=== PATIENT | male | born 1995 | race Caucasian/White ===

== ENCOUNTER 2023-12-01 22:28 | Emergency (ER) | payer SELFPAY ==
[2023-12-01 22:29] VITALS: BP 155/94; PULSE 113; RESP 18; TEMP 36.4; O2SAT 98; BMI 34.0
--- NOTE | 2023-12-01 22:40 | RAD_ITS ---
INDICATION: Injury/Pain -- Ring finger EXAMINATION/TECHNIQUE: X-RAY - LEFT HAND XR Fingers 3 VIEWS COMPARISON: FINDINGS: SOFT TISSUES: There is soft tissue swelling of the fourth finger. No radiopaque foreign body. BONES/JOINTS: No acute fracture or subluxation.. Normal alignment. Preservation of the joint space.. No sclerotic or destructive changes observed. RAD/Finger(s) Min 2 Views IMPRESSION: No acute bony injury. Electronically Signed: Sav Murray DO at 23:02 EDT ,
[2023-12-01] MEDS: Diphth,Pertuss(Acell),Tet Vac 0.5 ML Vial IM (22:52)
--- NOTE | 2023-12-01 23:06 | EX.ED.UPPERE ---
HPI History of Present Illness Chief Complaint: Upper Extremity Injury Detail of Chief Complaint: Puncture wound volar surface left ring finger Informant: patient Occured/Mechanism Comment: Puncture wound with staple Onset/Context/Timing Onset: Today and Hours Context: Sudden Onset Timing: Intermittent Location: Complains of discomfort PIP crease volar surface left ring finger Current Severity: 08/01 Maximum Severity: 10 Worsened by: Palpation over puncture sites Relieved by: Rest Associated Symptoms Associated Symptoms: Positive for Parasthesia; Negative for Weakness or Loss of Funtion Narrative Narrative: Puncture wound was stapled at approximately 1500 earlier today. Patient presents because of tingling his finger and pain. He denies fever, chills night sweats. There is no history medic fever review of records. He has no antibiotic allergies. Tetanus is unknown. He has no other complaints. Tetanus Immunization: Unknown PFSH [facility] Medical History no medical history no medical history Home Medications diphenhydramine HCl 25 mg capsule (Banophen) 50 mg (2 x 25 mg) PO TID PRN PRN Itching ##20 01/04/14 [Rx Last Taken Unknown] doxycycline monohydrate 100 mg capsule 100 mg PO BID ##20 10/29/16 [Rx Last Taken Unknown] hydrocodone-acetaminophen 5-325mg 5mg-325mg 1 - 2 tab PO Q4H PRN PRN Pain ##20 10/29/16 [Rx Last Taken Unknown] cephalexin 500 mg capsule 500 mg PO Q6 #12 CAPSULES 12/01/23 [Rx Last Taken Unknown] Allergy/AdvReac Type Severity Reaction Status Date / Time No Known Allergies Allergy Verified 12/01/23 22:28 Social History Smoking Status: Current every day smoker tobacco type: e-cigarettes ROS ROS ED Integumentary Reports other Details: Puncture wounds from staple volar surface of the left ring finger. Neurologic Neurologic: Reports paresthesias; Denies weakness Hematologic/Lymphatic Hematologic/Lymphatic: Denies easy bleeding or easy bruising EXAM Physical Exam Const Vital Signs: 12/01/23 22:29 Temperature 97.5 F L Temperature Source Temporal Pulse Rate 113 H Respiratory Rate 18 Blood Pressure 155/94 H Blood Pressure Mean 114 Pulse Ox 98 Oxygen Delivery Method Room Air Positive well nourished and well developed General Appearance ED: well developed and NAD HEENT normocephalic and atraumatic Eyes PERRL and EOMs intact bilaterally Resp normal respiratory effort Cardio regular rate and regular rhythm Extremity Negative for normal to inspection Extremity Narrative: Puncture wound noted crease of the PIP joint and proximal of the DIP joint volar surface of left ring finger. There is no erythema, warmth, induration, lymphangitis. There is no pain ovation over the flexor tendon sheath. There is no swelling of the digit. There is no concern at this time for flexor tenosynovitis. 2 point discrimination is normal. Neuro oriented x3 and CN's II-XII intact bilaterally Sensorium / Orientation: alert Psych mental status grossly normal Skin Skin Narrative: Puncture wounds described under the extremity portion of the EMR MDM MDM MDM Narrative Medical decision making narrative: X-ray was obtained to evaluate for foreign body. 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 Tetanus was updated. Radiography Chest X-Ray - ED: Read by ED Physician (Three-view x-ray of the left index finger was independent reviewed interpreted by me at 2300 as negative for any foreign body. There is no abnormality of the middle or proximal phalanx. Furthermore there was no air noted in the PIP joint.) Diagnostic Testing: Clinical Impression(s) from Imaging Studies Finger X-Ray 12/01/23 22:40 IMPRESSION: No acute bony injury. Electronically Signed: Sav Murray DO at 23:02 EDT Reading Location ID and State: [address] [place] [address] Tel [phone], Service support , Discharge Plan Triage Chief Complaint: Upper Extremity Injury ED Provider: Jose Luis Cassidy Dx/Rx/DC Orders Clinical Impression: Puncture wound of finger of left hand Instructions: ED Puncture Wound (General) Prescriptions: New cephalexin [cephalexin] 500 mg capsule 500 mg PO Q6 Qty: 12 0RF No Action diphenhydramine HCl [Banophen] 25 MG capsule 50 mg PO TID PRN PRN (Reason: Itching) Qty: 20 0RF hydrocodone-acetaminophen 1 TABLET tablet 1 - 2 tab PO Q4H PRN PRN (Reason: Pain) Qty: 20 0RF doxycycline monohydrate 100 MG capsule 100 mg PO BID Qty: 20 0RF Primary Care Provider: Care Physician,No Primary Referrals: Willie Camacho MD [Med Staff - Active Staff] - 2 Days for wound check Care Physician,No Primary [Primary Care Provider] - Activity Restrictions/Additional Instructions: If you develop swelling of your finger, redness, drainage from the 2 puncture sites or red streak going towards your wrist return to the emergency department. If you have tenderness over the tendon return immediately. Disposition Disposition: Home, Self Care
[2023-12-01] MEDS: Cephalexin 250 MG Capsule 500 MG PO (23:37)
[2023-12-01 23:42] VITALS: BP 141/74; PULSE 71; RESP 16; TEMP 36.8; O2SAT 97
== END 2023-12-01 23:43 | disposition home or self-care (01) ==
PROVIDERS: Emergency Provider Emergency Medicine; Visit Provider Emergency Medicine
DX: S61.235A Puncture wound without foreign body of left ring finger without damage to nail, initial encounter (principal); F17.210 Nicotine dependence, cigarettes, uncomplicated; Z23 Encounter for immunization
CPT/HCPCS: 73140; 90715; 99282

== ENCOUNTER 2024-10-28 22:08 | Emergency (ER) | payer BC, SELFPAY ==
[2024-10-28 22:08] VITALS: BP 146/84; PULSE 95; RESP 16; TEMP 36.6; O2SAT 98; BMI 36.3
--- NOTE | 2024-10-28 22:32 | EX.ED.UPPERE ---
HPI History of Present Illness Chief Complaint: Upper Extremity Injury Detail of Chief Complaint: Swelling, pain and redness left hand Informant: patient Occured/Mechanism Comment: Patient awoke this morning with pain in his left hand and redness as well as swelling. Onset/Context/Timing Onset: Today Context: Sudden Onset Timing: Continuous Quality of Pain: - (Prickly burning sensation) Location: Left hand and digits Current Severity: Mild Maximum Severity: Moderate Worsened by: Touch Relieved by: Nothing Associated Symptoms Associated Symptoms: Positive for Loss of Funtion (Feels as if his skin is tight and has restricted motion of his digits); Negative for Parasthesia or Weakness Narrative Narrative: Patient is a 29-year-old [id number] male. He has no significant past medical history. He presents because of swelling, pain and redness to his left hand. He first noted it this morning. He states has gotten worse. He does not have any medical problems and is presently on no medication. He denies itching. He denies prior symptoms. 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 This is nothing new. He apparently does not wear gloves. The swelling and redness is only noted on the left side and the redness is limited to the palmar surface of his thumb, fingers and palm. He has not noted any blistering. He denies heat exposure. Prior similar symptoms: No Recent Illness/Hospitalization: No PFSH PFSH Medical History no medical history no medical history Home Medications ?Medication ?Instructions ?Recorded ?Last Taken ?Type diphenhydramine HCl 25 mg capsule 50 mg (2 x 25 mg) PO TID PRN PRN 01/04/14 Unknown Rx (Banophen) Itching ##20 doxycycline monohydrate 100 mg 100 mg PO BID ##20 10/29/16 Unknown Rx capsule hydrocodone-acetaminophen 5-325mg 1 - 2 tab PO Q4H PRN PRN Pain ##20 10/29/16 Unknown Rx 5mg-325mg cephalexin 500 mg capsule 500 mg PO Q6 #12 CAPSULES 12/01/23 Unknown Rx naproxen 500 mg tablet 500 mg PO BID #14 tabs 10/28/24 Unknown Rx Allergy/AdvReac Type Severity Reaction Status Date / Time No Known Allergies Allergy Verified 10/28/24 22:10 Family History no significant family his Surgical History no surgical history no surgical history Social History Smoking Status: Current every day smoker tobacco type: e-cigarettes ROS ROS ED Constitutional Constitutional ED: Denies chills, fever(s), subjective, sweats or weight loss Gastrointestinal Gastrointestinal: Denies nausea or vomiting Genitourinary Genitourinary ED: Denies dysuria, hematuria or urinary frequency Musculoskeletal Musculoskeletal: Denies myalgias Integumentary Reports rash; Denies abscess or Abrasions Neurologic Neurologic: Reports paresthesias LUE (Limited to hand and digits); Denies headache(s) or weakness Hematologic/Lymphatic Hematologic/Lymphatic: Denies easy bleeding or easy bruising EXAM Physical Exam Const Vital Signs: 10/28/24 22:08 Temperature 97.9 F Temperature Source Oral Pulse Rate 95 Respiratory Rate 16 Blood Pressure 146/84 H Blood Pressure Mean 104 Pulse Ox 98 Oxygen Delivery Method Room Air Positive well nourished and well developed Constitutional Narrative: Vitals are markable slightly elevated blood pressure. BMI is 36.3. General Appearance ED: well developed and NAD; Negative for cyanotic or diaphoretic HEENT Reports moist mucous membranes normocephalic and atraumatic Eyes PERRL and EOMs intact bilaterally Neck full ROM and supple Resp normal respiratory effort and clear to auscultation bilaterally Cardio regular rate, regular rhythm, S1 normal heart sound, S2 normal heart sound and no murmurs Extremity full ROM; Negative for normal to inspection Extremity Narrative: Median, radial and ulnar function intact on the left. Radial pulses palpable. Patient reports sensitivity to light touch of his digits. There is a blanching erythematous rash noted predominantly on the volar surface of his thumb, all of his fingers and areas of his palm. There is no lymphangitis. There is no epitrochlear or axillary lymphadenopathy. There is no blistering noted. Neuro oriented x3, CN's II-XII intact bilaterally, no focal motor deficits and no sensory deficits noted Sensorium / Orientation: alert Psych mental status grossly normal Skin Skin Narrative: Described under the extremity portion of the EMR MDM MDM MDM Narrative Medical decision making narrative: Patient with swelling of his left hand compared to right with a rash. He this could be due to chemical exposure, autoimmune disorder, doubt infectious etiology. Patient was medicated with ketorolac since he has no contraindication and he drove himself to the emergency department. Labs were obtained to assess white count differential. Inflammatory markers were obtained and comprehensive metabolic panel was obtained to assess renal function, electrolytes, glucose. History & Record Review Additional record(s) reviewed:: Prior ED visit (Patient was seen November of last year for puncture wound to finger of his left hand, October 2016 for STI and contact dermatitis December 2013.) and Prior labs Lab Data Attestation: I reviewed the patient's lab results. Lab results narrative: CBC is unremarkable. ESR is normal. C-reactive protein is elevated 8.1. Competence of metabolic panel is unremarkable. CO2 is slightly low at 19.2 with a normal anion gap. Treatment and Re-Evaluation Narrative: Patient was informed that because of his rash and pain is uncertain. The area involvement is has to be picked up at the bottom of thermos upside down. He denies contact with anything hot or cold. Will have patient signed consent for picture and will refer to od grinder operator Discharge Plan Triage Chief Complaint: Upper Extremity Injury ED Provider: Jose Luis Cassidy Dx/Rx/DC Orders Clinical Impression: Abdominal hyperesthesia, Erythematous rash Instructions: Nonspecific Skin Rash Prescriptions: New naproxen 500 mg tablet 500 mg PO BID Qty: 14 0RF No Action diphenhydramine HCl [Banophen] 25 MG capsule 50 mg PO TID PRN PRN (Reason: Itching) Qty: 20 0RF hydrocodone-acetaminophen 1 TABLET tablet 1 - 2 tab PO Q4H PRN PRN (Reason: Pain) Qty: 20 0RF doxycycline monohydrate 100 MG capsule 100 mg PO BID Qty: 20 0RF cephalexin [cephalexin] 500 mg capsule 500 mg PO Q6 Qty: 12 0RF Primary Care Provider: Care Physician,No Primary Referrals: Dr. Neo Day - Dermatology [Outside] - 1-2 Days if not improving Care Physician,No Primary [Primary Care Provider] - Activity Restrictions/Additional Instructions: 1. No exposure to anything hot or extremely cold. 2. Take naproxen for pain Print Language: Filipino Disposition Disposition: Home, Self Care
[2024-10-28 22:55] LABS: Erythrocyte Sedimentation Rate 11 mm/hr (0-20)
[2024-10-28 22:57] LABS: Absolute Lymphocyte Count 2.35 X10^3/uL (0.83-4.51); Absolute Neutrophil Count 3.3 X10^3/uL (2.0-7.7); Basophil# 0.08 X10^3/uL; Basophil% 1.2 % (0-1); Eosinophil# 0.47 X10^3/uL; Eosinophils% 6.9 % (0-5); Hematocrit 44.7 % (40-54); Lymphocyte # 2.35 X10^3/ul (0.83-4.51); Lymphocyte % 34.4 % (19-41); Mean Corp Hgb Conc 33.6 g/dL (32-36); Mean Corpuscular Hgb 28.7 pg (27.0-32.0); Mean Corpuscular Volume 85.6 fL (80-94); Mean Platelet Vol. 9.8 fl (6.2-12.0); Monocyte# 0.58 X10^3/uL; Monocyte% 8.5 % (0-10); NRBC Flagged by Analyzer 0 % (0-5); Neutrophil # 3.34 X10^3/uL (2.7-7.7); Neutrophil % 48.9 % (47-70); Platelet Count 399 K/mm3 (150-450); RBC Distribution Width CV 13.9 % (11.6-14.6); RBC Distribution Width SD 43.6 fl (35.1-43.9); Red Blood Count 5.22 M/mm3 (4.6-6.2); White Blood Count 6.8 K/mm3 (4.4-11.0)
[2024-10-28] MEDS: Ketorolac 15 MG/ML Vial IV (23:00)
[2024-10-28 23:03] LABS: ALB/GLOB Ratio 1.4 RATIO (0.9-2.4); AST(SGOT) 31 U/L (<=37); Alanine Aminotransfer ALT/SGPT 47 U/L (<=46); Albumin, Serum 4.4 g/dL (3.5-5.0); Alkaline Phosphatase 69 U/L (40-129); Anion Gap 14 (5-15); BUN 13 mg/dL (4-19); BUN/Creat Ratio 12.5 RATIO (10-20); Carbon Dioxide 19.3 mmol/L (21.0-32.0); Chloride 108 mmol/L (98-108); EST Glomerular Filtration Rate 104 (>60); Estimated Creatinine Clearance 149.54 ml/min (50-250); Globulin 3.2 g/dL (2.2-4.2); Glucose 110 mg/dL (70-99); Potassium 3.9 mmol/L (3.3-5.1); Protein, Total 7.6 g/dL (5.9-8.4); Sodium Level 141 mmol/L (133-145); Total Bilirubin 0.41 mg/dL (0.00-1.30)
[2024-10-28 23:35] VITALS: BP 135/74; PULSE 84; RESP 16; TEMP 36.6; O2SAT 98
== END 2024-10-28 23:45 | disposition home or self-care (01) ==
PROVIDERS: Emergency Provider Emergency Medicine; Visit Provider Emergency Medicine
DX: R20.3 Hyperesthesia (principal); R21 Rash and other nonspecific skin eruption; F17.290 Nicotine dependence, other tobacco product, uncomplicated
CPT/HCPCS: 80053; 85025; 85652; 86140; 96374; 99283; A4216

== ENCOUNTER 2025-05-26 19:36 | Emergency (ER) | payer MEDICAID, SELFPAY ==
[2025-05-26 19:37] VITALS: BP 147/90; PULSE 101; RESP 19; TEMP 36.6; O2SAT 98; BMI 32.6
[2025-05-26 20:02] LABS: Hematocrit 40.9 % (40-54); Hemoglobin 13.4 g/dL (13.0-16.5); Immature Granulocytes Count 0.020 X10^3/uL (0.0-0.0); Mean Corp Hgb Conc 32.8 g/dL (32-36); Mean Corpuscular Volume 87.2 fL (80-94); Mean Platelet Vol. 9.7 fl (6.2-12.0); NRBC Flagged by Analyzer 0 % (0-5); Platelet Count 366 K/mm3 (150-450); RBC Distribution Width CV 14.3 % (11.6-14.6); RBC Distribution Width SD 45.4 fl (35.1-43.9); Red Blood Count 4.69 M/mm3 (4.6-6.2); White Blood Count 9.9 K/mm3 (4.4-11.0)
[2025-05-26 20:35] LABS: AST(SGOT) 23 U/L (<=37); Alanine Aminotransfer ALT/SGPT 29 U/L (<=46); Albumin, Serum 4.5 g/dL (3.5-5.0); Alkaline Phosphatase 57 U/L (40-129); Anion Gap 10 (5-15); BUN 15 mg/dL (4-19); BUN/Creat Ratio 11.2 RATIO (10-20); Calcium,Total 9.3 mg/dL (7.6-11.0); Carbon Dioxide 26.1 mmol/L (21.0-32.0); Chloride 105 mmol/L (98-108); Estimated Creatinine Clearance 106.63 ml/min (50-250); Globulin 3.0 g/dL (2.2-4.2); Glucose 85 mg/dL (70-99); Lipase 18 U/L (13-75); Potassium 4.3 mmol/L (3.3-5.1)
--- NOTE | 2025-05-26 21:07 | CT_ITS ---
PROCEDURE: CT/Abdomen/Pelvis W IV Cont ONLY
[2025-05-26 21:41] VITALS: BP 126/75; PULSE 88; RESP 16; O2SAT 98
--- NOTE | 2025-05-26 21:48 | CM.ED ---
Social work Reason for referral: no PCP Referral source: case find SW entered patient's room, introducing self and role at [facility]. Patient welcomed SW visit and confirmed lacking a PCP. Patient was hesitant to do so, but accepted resources of [facility] Provider Directory and Zayda Cohen information. Patient denied further resources at this time. Nighat Rangel, VARNISH BLENDER, BILLIARD TABLE REPAIRER
[2025-05-26 23:03] VITALS: BP 129/72; PULSE 88; RESP 15; TEMP 36.6; O2SAT 98
[2025-05-26 23:34] VITALS: BP 129/72; PULSE 88; RESP 15; TEMP 36.6; O2SAT 98
--- NOTE | 2025-05-26 23:39 | EX.ED.DYSGE1 ---
HPI History of Present Illness Chief Complaint: Abd Pain Informant: patient Narrative Narrative: 29-year-old male presenting to the emergency room with chief complaint of rectal bleeding and abdominal trauma. Patient states that yesterday he had an 80 pound piece of an engine fall onto his abdomen. He states he was sore but it was more so this morning and throughout the day. He notes some burning in the upper mid abdomen as well as a sharp pain. He states that he is been feeling like perhaps has had an umbilical hernia for some time. That appears unchanged. Has not had any pain with urination or hematuria. Had a bowel movement at work tonight and noticed a large amount of blood with the stool. No reported vomiting. No fevers. PFSH PFSH Home Medications ?Medication ?Instructions ?Recorded ?Last Taken ?Type oxycodone-acetaminophen 5 mg-325 1 tab PO Q6H PRN pain 3 days #12 05/26/25 Unknown Rx mg tablet (Percocet) tabs Allergy/AdvReac Type Severity Reaction Status Date / Time No Known Allergies Allergy Verified 05/26/25 19:37 Surgical History H/O hand surgery H/O left knee surgery Social History Smoking Status: Current every day smoker tobacco type: e-cigarettes ROS ROS ED Constitutional Constitutional ED: Denies chills or weight loss Eyes Eyes: Denies change in vision or diplopia ENT ENT ED: Denies ear pain, rhinorrhea or sore throat Cardiovascular Cardiovascular: Denies chest pain, orthopnea, palpitations or racing heartbeat Respiratory/Chest Respiratory/Chest: Denies cough, dyspnea or orthopnea Gastrointestinal Gastrointestinal: Reports abdominal pain and other Details: Hematochezia ; Denies diarrhea, nausea or vomiting Genitourinary Genitourinary ED: Denies dysuria, hematuria or urinary frequency Musculoskeletal Musculoskeletal: Denies arthralgias or myalgias Integumentary Denies abscess or rash Neurologic Neurologic: Denies headache(s) or weakness Psychiatric Psychiatric: Denies anxiety, depression, suicidal ideation or suicidal thoughts Endocrine Endocrinology: Denies polydipsia, polyphagia or polyuria Allergic/Immunologic Allergic/Immunologic ED: Denies mouth swelling, tongue swelling or urticaria EXAM Physical Exam Const Vital Signs: 05/26/25 19:37 05/26/25 21:41 05/26/25 23:03 Temperature 97.8 F 97.8 F Temperature Source Oral Oral Pulse Rate 101 H 88 88 Respiratory Rate 19 H 16 15 Blood Pressure 147/90 H 126/75 H 129/72 H Blood Pressure Mean 109 92 91 Pulse Ox 98 98 98 Oxygen Delivery Method Room Air Room Air Room Air 05/26/25 23:34 Temperature 97.8 F Temperature Source Pulse Rate 88 Respiratory Rate 15 Blood Pressure 129/72 H Blood Pressure Mean 91 Pulse Ox 98 Oxygen Delivery Method Positive well nourished and well developed General Appearance ED: well developed and NAD HEENT Reports normocephalic, head/scalp atraumatic and moist mucous membranes Eyes PERRL and EOMs intact bilaterally Neck no lymphadenopathy, supple and no JVD Resp normal respiratory effort and clear to auscultation bilaterally Cardio regular rate, regular rhythm and no murmurs GI GI Narrative: There appears to be a small umbilical abdominal wall defect but no obvious hernia at this time. I do not see any abdominal bruising or abrasions. I do not appreciate any gross rectal blood or external hemorrhoids.There is no flank ecchymosis. Palpation: soft and tender epigastric Back/Spine no CVA tenderness and normal ROM Extremity normal to inspection General Extremety ED: Negative for edema General Extremity: Negative for edema Neuro oriented x3 and CN's II-XII intact bilaterally Sensorium / Orientation: alert Motor Exam: strength 5/5 throughout Psych mental status grossly normal Mood & Affect: Negative for depressed or tearful Skin no rashes or lesions noted and no wounds MDM MDM MDM Narrative Medical decision making narrative: Differential diagnosis includes but not limited to liver and spleen lacerations pancreatitis perforated viscus abdominal wall contusion bowel contusion anemia fracture Basic blood work was obtained was negative including his liver and lipase. Creatinine 1.33 hemoglobin 13.4 platelet count is 366. CT abdomen pelvis with IV contrast was obtained. This was read by radiology reviewed by myself. I do not see any obvious intra-abdominal trauma. I reviewed the case with on-call surgeon Dr. Berry. As the patient has been doing well we do not see any significant findings on his CT read I discharged him home with supportive care. He was advised this may be an internal hemorrhoid in which case he may still have some bleeding. If he has increasing abdominal pain or new symptoms he should return to emergency for repeat examination History & Record Review Discussion w/independent historian: Patient Lab Data Attestation: I reviewed the patient's lab results. Labs: Laboratory Results - last 24 hr 05/26/25 19:44 WBC 9.9 RBC 4.69 Hgb 13.4 Hct 40.9 MCV 87.2 MCH 28.6 MCHC 32.8 RDW Std Deviation 45.4 H RDW Coeff of Quirino 14.3 Plt Count 366 MPV 9.7 Immature Gran % (Auto) 0.200 Neut % (Auto) 56.9 Lymph % (Auto) 31.3 [place] % (Auto) 8.1 Eos % (Auto) 2.9 Baso % (Auto) 0.6 Absolute Neuts (auto) 5.6 Absolute Lymphs (auto) 3.08 Nucleated RBC % 0 Sodium 141 Potassium 4.3 Chloride 105 Carbon Dioxide 26.1 Anion Gap 10 BUN 15 Creatinine 1.33 H Estim Creat Clear Calc 106.63 Est GFR (MDRD) Non-Af 74 BUN/Creatinine Ratio 11.2 Glucose 85 Calcium 9.3 Total Bilirubin 0.38 AST 23 ALT 29 Alkaline Phosphatase 57 Total Protein 7.5 Albumin 4.5 Globulin 3.0 Albumin/Globulin Ratio 1.5 Lipase 18 Radiography Diagnostic Testing: Clinical Impression(s) from Imaging Studies Abdomen/Pelvis CT 05/26/25 21:07 IMPRESSION: No acute abnormality of the abdomen or pelvis. Hypodense liver suspicious for steatosis. Ectopic left kidney, an anatomic variant. Reading Location: [facility] Management Discussion w/another healthcare provider: Group Tester (Dr. Berry (general surgery)) Discharge Plan Triage Chief Complaint: Abd Pain ED Provider: True Juan Dx/Rx/DC Orders Clinical Impression: Hematochezia, Blunt abdominal trauma Instructions: Blunt Abdominal Trauma, ED Lower GI Bleeding (Stable) Prescriptions: New oxycodone-acetaminophen [Percocet] 5-325 mg tablet 1 tab PO Q6H PRN (Reason: pain) 3 Days Qty: 12 0RF Primary Care Provider: Care Physician,No Primary Referrals: Care Physician,No Primary [Primary Care Provider, Medical] Activity Restrictions/Additional Instructions: If you are worsening or have concerns please return to emergency. If this is an internal hemorrhoid you may have intermittent bleeding. Limit the amount of time on the toilet and avoid straining. Print Language: Taiwanese Disposition Disposition: Home, Self Care Discharge Date/Time: 05/26/25 23:35
== END 2025-05-26 23:35 | disposition home or self-care (01) ==
PROVIDERS: Emergency Provider Emergency Medicine; Visit Provider Emergency Medicine
DX: K92.1 Melena (principal); R10.10 Upper abdominal pain, unspecified; F17.290 Nicotine dependence, other tobacco product, uncomplicated
CPT/HCPCS: 74177; 80053; 83690; 85025; 96374; 99283; Q9967; A4216